=== PATIENT | female | born 1990 | race American Indian/Alaskan Native ===

== ENCOUNTER 2017-02-19 02:50 | Emergency (ER) | payer SELFPAY ==
[2017-02-19 03:03] VITALS: BP 128/85
== END 2017-02-19 07:02 | disposition left against medical advice (07) ==
LOC: ED 02:50
DX: K08.89 Other specified disorders of teeth and supporting structures (principal); Z53.21 Procedure and treatment not carried out due to patient leaving prior to being seen by health care provider

== ENCOUNTER 2017-08-03 23:04 | Emergency (ER) | payer SELFPAY ==
[2017-08-03 23:18] VITALS: BP 104/59
[2017-08-03 23:41] LABS: Basophils % (Auto) 0.8 % (0.0-1.8); Eosinophils % (Auto) 1.3 % (0.0-4.3); Hematocrit 39.1 % (30.3-42.9); Hemoglobin 13.2 gm/dl (10.1-14.3); Mean Corpuscular HGB Conc 34 % (30-34); Mean Corpuscular Hemoglobin 29 pg (28-32); Mean Corpuscular Volume 86 fl (79-97); Platelet Count 239 K/mm3 (140-440); Red Blood Count 4.54 M/mm3 (3.65-5.03); White Blood Count 8.4 K/mm3 (4.5-11.0)
[2017-08-03 23:58] LABS: Alanine Aminotransferase 11 units/L (7-56); Albumin 4.2 g/dL (3.9-5); Albumin/Globulin Ratio 1.7 %; Alkaline Phosphatase 39 units/L (35-129); Anion Gap 16 mmol/L; BUN/Creatinine Ratio 18; Blood Urea Nitrogen 11 mg/dL (7-17); Calcium 8.9 mg/dL (8.4-10.2); Carbon Dioxide 22 mmol/L (22-30); Chloride 100.3 mmol/L (98-107); Glucose 98 mg/dL (65-100); Lipase 12 units/L (13-60); Potassium 3.7 mmol/L (3.6-5.0); Sodium 135 mmol/L (137-145); Total Protein 6.7 g/dL (6.3-8.2)
[2017-08-04 00:07] LABS: Bilirubin,Urine NEG (Negative); Blood,Urine NEG (Negative); Ketones,Urine TR mg/dL (Negative); Leukocyte Esterase,Urine NEG (Negative); Mucus,Urine 1+ /HPF; Nitrite,Urine NEG (Negative); Protein,Urine <15 mg/dL mg/dL (Negative)
== END 2017-08-04 00:25 | disposition left against medical advice (07) ==
LOC: ED 23:04
DX: N93.9 Abnormal uterine and vaginal bleeding, unspecified (principal); Z53.21 Procedure and treatment not carried out due to patient leaving prior to being seen by health care provider
CPT/HCPCS: 36415; 80053; 81001; 83690; 84702; 84703; 85025

== ENCOUNTER 2017-09-15 21:26 | Emergency (ER) | payer MEDICAID ==
[2017-09-15 22:16] LABS: BUN/Creatinine Ratio 16; Blood Urea Nitrogen 8 mg/dL (7-17); Calcium 8.8 mg/dL (8.4-10.2); Hemolysis Index 9
[2017-09-15 22:24] LABS: Hematocrit 38.4 % (30.3-42.9); Hemoglobin 12.8 gm/dl (10.1-14.3); Mean Corpuscular HGB Conc 33 % (30-34); Mean Corpuscular Hemoglobin 30 pg (28-32); Mean Corpuscular Volume 89 fl (79-97); Platelet Count 259 K/mm3 (140-440); Red Blood Count 4.33 M/mm3 (3.65-5.03)
[2017-09-16] MEDS ORDERED: TYLENOL PO ONE ×2 (01:07→06:58)
--- NOTE | 2017-09-16 04:37 | Ultrasound Report ---
FINAL REPORT EXAM: US OB TRANSVAGINAL HISTORY: vaginal bleed with TECHNIQUE: Transvaginal imaging was obtained of the pelvis including Doppler interrogation of the adnexa and uterus. FINDINGS: The uterus is anteverted measuring 11.4 cm x 6.4 cm x 8.3 cm. Within the uterus is a gestational sac containing an embryo and yolk sac. The embryo measures 33.6 millimeters which corresponds to a 10 week 2 day IUP. The heart rate is 161 BPM. Adjacent to the gestational sac is a very small hypoechoic area measuring 7 millimeters x 5 millimeters by 10 millimeters compatible with a small subchorionic bleed. Free fluid is not seen. The right ovary measures 3.3 cm x 2 cm x 2.5 cm and contains several small follicles. The left ovary measures 4.5 cm x 3.4 cm x 3.1 cm. Within the left ovary is a complex septated cyst measuring 2.8 cm in diameter. IMPRESSION: Single viable IUP of 10 weeks 2 days, heart rate 161 BPM. Complex left ovarian cyst with septations measuring up to 2.8 cm in diameter. No evidence of free fluid
--- NOTE | 2017-09-16 04:39 | Ultrasound Report ---
FINAL REPORT EXAM: US OB < = 14 WEEKS FETUS HISTORY: vaginal bleed with TECHNIQUE: Transabdominal imaging was obtained of the pelvis along with Doppler interrogation of the uterus and adnexa. FINDINGS: The uterus is anteverted measuring 11.4 cm x 6.4 cm x 8.3 cm. Within the uterus is a gestational sac containing a yolk sac and embryo. The embryo measures 33.6 millimeters and crown-rump length, corresponding to a 10 week 2 day IUP. The heart rate is 161 BPM. Adjacent to the gestational sac is a very small hypoechoic area measuring 7 millimeters x 5 millimeters x 10 millimeters compatible with a subchorionic bleed. The right ovary is normal size contour blood flow and echotexture measuring 3.3 cm x 2 cm x 2.5 cm. There is several small follicles in the right ovary. The left ovary measures 3.5 cm x 3.4 cm x 3.1 cm. Within the left ovary is a complex septated cyst measuring 2.8 cm in diameter. Free fluid is not seen. IMPRESSION: Single viable IUP of 10 weeks 2 days. Complex septated left ovarian cyst measuring 2.8 cm in diameter.
[2017-09-16 06:15] VITALS: BP 116/72
[2017-09-16 06:30] LABS: Bilirubin,Urine NEG (Negative); Blood,Urine NEG (Negative); Color,Urine Yellow (Yellow); Mucus,Urine 1+ /HPF; Nitrite,Urine NEG (Negative); Protein,Urine <15 mg/dL mg/dL (Negative); Urobilinogen,Urine < 2.0 mg/dL (<2.0); WBC,Urine < 1.0 /HPF (0.0-6.0)
[2017-09-16] MEDS ORDERED: ZOFRAN ODT PO ONE (06:58)
--- NOTE | 2017-09-16 07:12 | Emergency Department Report ---
ED HPI - General Chief complaint: Vaginal Bleeding Stated complaint: VAGINAL BLEED/12WEEKS PREG Time Seen by Provider: 09/16/17 06:52 Source: patient Mode of arrival: Ambulatory Limitations: No Limitations - History of Present Illness MD Complaint: abdominal pain, vaginal bleeding (patient states that she has spotting for the last 2 days. Patient's abdominal pain is crampy and left-sided ) -: days(s) (2) Location: pelvis Radiation: none Severity: moderate Severity scale (0 -10): 5 Quality: cramping Consistency: intermittent Improves with: none Worsens with: none Associated symptoms: nausea/vomiting (patient does have some mild nausea but is not vomiting). denies: vaginal discharge, dysparuenia, shortness of breath, syncope, weakness - Related Data Previous Rx's Medication Instructions Recorded Last Taken Type Ondansetron [Zofran Odt] 4 mg PO Q8HR #10 tab.rapdis 09/16/17 Unknown Rx Allergies Allergy/AdvReac Type Severity Reaction Status Date / Time No Known Allergies Allergy Verified 02/14/14 22:07 ED Review of Systems ROS: Stated complaint: VAGINAL BLEED/12WEEKS PREG Other details as noted in HPI Comment: All other systems reviewed and negative ED Past Medical Hx - Past Medical History Previous Medical History?: No Additional medical history: Mirena. Anemia - Surgical History Additional Surgical History: - Social History Smoking Status: Never Smoker Substance Use Type: None - Medications Home Medications: Home Medications Medication Instructions Recorded Confirmed Last Taken Type Ondansetron [Zofran Odt] 4 mg PO Q8HR #10 tab.rapdis 09/16/17 Unknown Rx ED Physical Exam - General Limitations: No Limitations General appearance: alert, in no apparent distress - Head Head exam: Present: atraumatic, normocephalic - Eye Eye exam: Present: normal appearance - ENT ENT exam: Present: mucous membranes moist - Neck Neck exam: Present: normal inspection - Respiratory Respiratory exam: Present: normal lung sounds bilaterally. Absent: respiratory distress - Cardiovascular Cardiovascular Exam: Present: regular rate, normal rhythm. Absent: systolic murmur, diastolic murmur, rubs, gallop - GI/Abdominal GI/Abdominal exam: Present: soft, normal bowel sounds - Extremities Exam Extremities exam: Present: normal inspection - Back Exam Back exam: Present: normal inspection - Neurological Exam Neurological exam: Present: alert, oriented X3 - Psychiatric Psychiatric exam: Present: normal affect, normal mood - Skin Skin exam: Present: warm, dry, intact, normal color. Absent: rash ED Course Vital Signs 09/15/17 09/16/17 09/16/17 21:36 01:08 04:30 Temperature 97.8 F 98 F Pulse Rate 85 83 Respiratory 20 20 18 Rate Blood Pressure 101/50 Blood Pressure 105/77 [Left] O2 Sat by Pulse 100 100 98 Oximetry 09/16/17 05:50 Temperature 98.5 F Pulse Rate 76 Respiratory 18 Rate Blood Pressure Blood Pressure 116/72 [Left] O2 Sat by Pulse 100 Oximetry ED Medical Decision Making - Lab Data Result diagrams: 09/15/17 21:44 09/15/17 21:44 Lab Results 09/15/17 09/15/17 09/15/17 Range/Units 21:44 21:44 21:44 WBC 11.5 H (4.5-11.0) K/mm3 RBC 4.33 (3.65-5.03) M/mm3 Hgb 12.8 (10.1-14.3) gm/dl Hct 38.4 (30.3-42.9) % MCV 89 (79-97) fl MCH 30 (28-32) pg MCHC 33 (30-34) % RDW 14.0 (13.2-15.2) % Plt Count 259 (140-440) K/mm3 Sodium 136 L (137-145) mmol/L Potassium 3.7 (3.6-5.0) mmol/L Chloride 98.3 (98-107) mmol/L Carbon Dioxide 21 L (22-30) mmol/L Anion Gap 20 mmol/L BUN 8 (7-17) mg/dL Creatinine 0.5 L (0.7-1.2) mg/dL Estimated GFR > 60 ml/min BUN/Creatinine Ratio 16 % Glucose 91 (65-100) mg/dL Calcium 8.8 (8.4-10.2) mg/dL HCG, Quant 14573 H (0-4) mIU/mL Urine Color (Yellow) Urine Turbidity (Clear) Urine pH (5.0-7.0) Ur Specific [place] (1.003-1.030) Urine Protein (Negative) mg/dL Urine Glucose (UA) (Negative) mg/dL Urine Ketones (Negative) mg/dL Urine Blood (Negative) Urine Nitrite (Negative) Urine Bilirubin (Negative) Urine Urobilinogen (<2.0) mg/dL Ur Leukocyte Esterase (Negative) Urine WBC (Auto) (0.0-6.0) /HPF Urine RBC (Auto) (0.0-6.0) /HPF U Epithel Cells (Auto) (0-13.0) /HPF Urine Mucus /HPF Blood Type 09/15/17 09/15/17 Range/Units 21:44 Unknown WBC (4.5-11.0) K/mm3 RBC (3.65-5.03) M/mm3 Hgb (10.1-14.3) gm/dl Hct (30.3-42.9) % MCV (79-97) fl MCH (28-32) pg MCHC (30-34) % RDW (13.2-15.2) % Plt Count (140-440) K/mm3 Sodium (137-145) mmol/L Potassium (3.6-5.0) mmol/L Chloride (98-107) mmol/L Carbon Dioxide (22-30) mmol/L Anion Gap mmol/L BUN (7-17) mg/dL Creatinine (0.7-1.2) mg/dL Estimated GFR ml/min BUN/Creatinine Ratio % Glucose (65-100) mg/dL Calcium (8.4-10.2) mg/dL HCG, Quant (0-4) mIU/mL Urine Color Yellow (Yellow) Urine Turbidity Clear (Clear) Urine pH 6.0 (5.0-7.0) Ur Specific [place] 1.025 (1.003-1.030) Urine Protein <15 mg/dl (Negative) mg/dL Urine Glucose (UA) Neg (Negative) mg/dL Urine Ketones Tr (Negative) mg/dL Urine Blood Neg (Negative) Urine Nitrite Neg (Negative) Urine Bilirubin Neg (Negative) Urine Urobilinogen < 2.0 (<2.0) mg/dL Ur Leukocyte Esterase Neg (Negative) Urine WBC (Auto) < 1.0 (0.0-6.0) /HPF Urine RBC (Auto) 2.0 (0.0-6.0) /HPF U Epithel Cells (Auto) 5.0 (0-13.0) /HPF Urine Mucus 1+ /HPF Blood Type O POSITIVE - Radiology Data Radiology results: report reviewed Ultrasound OB transvaginal showed a 10 week 2 day IUP viable there is a left- sided ovarian cysts Critical care attestation.: If time is entered above; I have spent that time in minutes in the direct care of this critically ill patient, excluding procedure time. ED Disposition Clinical Impression: Threatened miscarriage in early , Ovarian cyst Disposition: TO HOME OR SELFCARE Is pt being admited?: No Does the pt Need Aspirin: No Condition: Fair Instructions: Threatened Miscarriage (ED) Prescriptions: Ondansetron [Zofran Odt] 4 mg PO Q8HR #10 tab.rapdis Referrals: PRIMARY CARE, [Primary Care Provider] - 3-5 Days
== END 2017-09-16 07:12 | disposition home or self-care (01) ==
LOC: ED 21:26
DX: O20.0 Threatened abortion (principal); O34.81 Maternal care for other abnormalities of pelvic organs, first trimester; Z3A.10 10 weeks gestation of pregnancy
CPT/HCPCS: 36415; 76801; 76817; 80048; 81001; 84702; 85027; 86900; 86901

== ENCOUNTER 2017-09-27 09:56 | Emergency (ER) | payer MEDICAID ==
[2017-09-27 10:06] VITALS: BP 104/66
[2017-09-27] MEDS ORDERED: ASPIRIN PO ONE (10:06)
[2017-09-27 10:29] LABS: Basophils % (Auto) 0.3 % (0.0-1.8); Eosinophils # (Auto) 0.1 K/mm3 (0.0-0.4); Eosinophils % (Auto) 1.1 % (0.0-4.3); Hematocrit 40.4 % (30.3-42.9); Hemoglobin 13.4 gm/dl (10.1-14.3); Lymphocytes # (Auto) 1.7 K/mm3 (1.2-5.4); Lymphocytes % (Auto) 15.2 % (13.4-35.0); Mean Corpuscular HGB Conc 33 % (30-34); Mean Corpuscular Hemoglobin 30 pg (28-32); Mean Corpuscular Volume 89 fl (79-97); Monocytes # (Auto) 0.4 K/mm3 (0.0-0.8); Monocytes % (Auto) 3.8 % (0.0-7.3); Platelet Count 258 K/mm3 (140-440); Red Blood Count 4.52 M/mm3 (3.65-5.03); Red Cell Distribution Width 14.1 % (13.2-15.2)
[2017-09-27 10:47] LABS: BUN/Creatinine Ratio 20; Blood Urea Nitrogen 8 mg/dL (7-17); Calcium 8.6 mg/dL (8.4-10.2); Hemolysis Index 21
== END 2017-09-27 10:30 | disposition left against medical advice (07) ==
LOC: ED 09:56
DX: R07.9 Chest pain, unspecified (principal); Z53.21 Procedure and treatment not carried out due to patient leaving prior to being seen by health care provider
CPT/HCPCS: 36415; 80048; 84484; 85025; 93005; 93010

== ENCOUNTER 2017-12-11 13:02 | Outpatient (CLI) | payer MEDICAID ==
[2017-12-11 14:09] LABS: Bilirubin,Urine NEG (Negative); Blood,Urine NEG (Negative); Color,Urine Straw (Yellow); Protein,Urine <15 mg/dL mg/dL (Negative); Urobilinogen,Urine < 2.0 mg/dL (<2.0); WBC,Urine < 1.0 /HPF (0.0-6.0)
== END 2017-12-11 15:12 | disposition home or self-care (01) ==
LOC: TRG 13:02
PROVIDERS: ATTEND Obstetrics & Gynecology Gynecology
DX: O21.2 Late vomiting of pregnancy (principal); O26.892 Other specified pregnancy related conditions, second trimester; R42 Dizziness and giddiness; R10.30 Lower abdominal pain, unspecified; Z3A.22 22 weeks gestation of pregnancy
CPT/HCPCS: 59025; 81001

== ENCOUNTER 2018-02-10 00:18 | Outpatient (CLI) | payer MEDICAID ==
[2018-02-10 00:32] VITALS: BP 111/55
[2018-02-10 01:20] LABS: Bilirubin,Urine NEG (Negative); Blood,Urine NEG (Negative); Color,Urine Yellow (Yellow); Mucus,Urine FEW /HPF; Protein,Urine <15 mg/dL mg/dL (Negative); Urobilinogen,Urine < 2.0 mg/dL (<2.0)
[2018-02-10 01:26] LABS: Amphetamine Screen,Urine PRESUMPTIVE NEGATIVE; Benzodiazepines Screen,Urine PRESUMPTIVE NEGATIVE; Cocaine Screen,Urine PRESUMPTIVE NEGATIVE; Methadone Screen,Urine PRESUMPTIVE NEGATIVE; Opiate Screen,Urine PRESUMPTIVE NEGATIVE
[2018-02-10 01:43] LABS: Cannabinoid Screen,Urine PRESUMPTIVE POSITIVE
[2018-02-10] MEDS ORDERED: TYLENOL ONE (01:51)
[2018-02-10] MEDS ORDERED: TYLENOL PO ONE (01:55)
== END 2018-02-10 02:01 | disposition home or self-care (01) ==
LOC: TRG 00:18
PROVIDERS: ATTEND Obstetrics & Gynecology Gynecology
DX: O47.03 False labor before 37 completed weeks of gestation, third trimester (principal); Z3A.31 31 weeks gestation of pregnancy
CPT/HCPCS: 59025; 80307; 81001

== ENCOUNTER 2018-03-10 23:17 | Emergency (ER) | payer MEDICAID | END 2018-03-10 23:30 | disposition left against medical advice (07) | LOC: ED 23:17 | DX: L72.8 Other follicular cysts of the skin and subcutaneous tissue (principal); Z53.21 Procedure and treatment not carried out due to patient leaving prior to being seen by health care provider ==

== ENCOUNTER 2019-07-27 14:12 | Emergency (ER) | payer MEDICAID ==
--- NOTE | 2019-07-27 15:03 | Event Note ---
ED Screening Note Date of service: 07/27/19 Time: 14:59 ED Screening Note: Pt complains of shortness of breath, chest pain ,and back pain x yesterday +cough, chills/sweats 14 weeks denies recent long travel, hx of DVT/PE denies vaginal bleeding or abdominal pain or dysuria +calf tenderness abnormal breath sounds on exam This initial assessment/diagnostic orders/clinical plan/treatment(s) is/are subject to change based on patients health status, clinical progression and re-assessment by fellow clinical providers in the ED. Further treatment and workup at subsequent clinical providers discretion. Patient/guardian urged not to elope from the ED as their condition may be serious if not clinically assessed and managed. Initial orders include: Labs CXR
--- NOTE | 2019-07-27 16:04 | XRay Report ---
CHEST 2 VIEWS INDICATION: chest pain, SOB, abnormal breath sounds. COMPARISON: FINDINGS: Support devices: None. Heart: Within normal limits. Lungs/pleura: No acute air space or interstitial disease. No pneumothorax. Additional findings: Thoracolumbar scoliosis is noted. IMPRESSION: No acute findings. Signer Name: Miguel Cruz Jr, MD Signed: 07/27/2019 3:59 PM Workstation Name: [id number]
--- NOTE | 2019-07-27 16:31 | Vascular Lab Report ---
. DUPLEX DOPPLER LOWER EXTREMITY VEINS, BILATERAL INDICATION: Bilateral lower extremity pain and shortness of breath since yesterday. TECHNIQUE: Duplex doppler imaging was performed through the veins of both lower extremities using ve nous compression and other maneuvers. COMPARISON: No relevant prior imaging study available. FINDINGS: Right Common femoral vein: Negative. Right Superficial femoral vein: Negative. Right Popliteal vein: Negative. Right Calf veins: Negative. Left Common femoral vein: Negative. Left Superficial femoral vein: Negative. Left Popliteal vein: Negative. Left Calf veins: Negative. Additional findings: None.. IMPRESSION: No sonographic evidence for DVT in either lower extremity. Signer Name: Miguel Cruz Jr, MD Signed: 07/27/2019 4:27 PM Workstation Name: [id number]
[2019-07-27 17:32] LABS: Bilirubin,Urine NEG (Negative); Blood,Urine NEG (Negative); Color,Urine Yellow (Yellow); Mucus,Urine 2+ /HPF
[2019-07-27] MEDS ORDERED: ALBUTEROL 2.5 MG/3 ML NEBU IH ONE (17:37)
[2019-07-27] MEDS ORDERED: IPRATROPIUM 0.02% NEBU 2.5 ML IH ONE (17:37)
[2019-07-27] MEDS ORDERED: FAMOTIDINE 20 MG/2 ML INJ IV ONE (17:37)
[2019-07-27] MEDS ORDERED: SODIUM CHLORIDE 0.9% 1000 ML 1,000 ML IV ONE (17:37)
[2019-07-27] MEDS ORDERED: methylPREDNISolone Sod Succinate 125 MG/2 ML INJ IV ONE (17:37)
[2019-07-27] MEDS ORDERED: ACETAMINOPHEN 500 MG TAB PO ONE (17:37)
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
[2019-07-27 17:39] LABS: Alanine Aminotransferase 8 units/L (7-56); BUN/Creatinine Ratio 13; Blood Urea Nitrogen 5 mg/dL (7-17); Hemolysis Index 4
[2019-07-27] MEDS ORDERED: ONDANSETRON 4 MG/2 ML INJ IV ONE (17:43)
[2019-07-27] MEDS ORDERED: D5W/0.45% NACL 1,000 ML IV SCH (18:00)
[2019-07-27 18:35] LABS: Hematocrit 43.7 % (30.3-42.9); Hemoglobin 14.5 gm/dl (10.1-14.3); Mean Corpuscular HGB Conc 33 % (30-34); Mean Corpuscular Volume 90 fl (79-97); Platelet Count 232 K/mm3 (140-440); Red Blood Count 4.88 M/mm3 (3.65-5.03)
[2019-07-27 18:45] LABS: INR 1.08 (0.87-1.13)
[2019-07-27 18:46] LABS: Partial Thromboplastin Time 26.8 Sec. (24.2-36.6)
--- NOTE | 2019-07-27 22:12 | Ultrasound Report ---
ULTRASOUND OBSTETRIC INDICATION / CLINICAL INFORMATION: back pain . Clinical Gestational Age (GA): 13 weeks 2 days TECHNIQUE: Transabdominal. COMPARISON: None available. FINDINGS: GESTATIONAL SAC: Well-defined oval shape and intrauterine in location. PLACENTA: Left lateral. EMBRYO/FETUS: No significant abnormality. - [place]-Rump Length = 7.3 cm = 13 weeks, 3 day(s). - Heart Rate, beats per minute (if present) = 161 ADNEXA: No significant abnormality. FREE FLUID: None. ADDITIONAL FINDINGS: None. IMPRESSION: 1. Single, living intrauterine with estimated sonographic age of 13 weeks, 3 day(s). Signer Name: Shirley Jones MD Signed: 07/27/2019 10:07 PM Workstation Name: [id number]
[2019-07-27 22:44] VITALS: BP 119/68
== END 2019-07-27 22:45 | disposition home or self-care (01) ==
LOC: ED 14:12
DX: O99.512 Diseases of the respiratory system complicating pregnancy, second trimester (principal); Z3A.14 14 weeks gestation of pregnancy
CPT/HCPCS: 36415; 71046; 76801; 80053; 81001; 82550; 83735; 84484; 85027; 85379; 85610; 85730; 86850; 86900; 86901; 93005; 93010; 93970; 94640; 96361; 96374; 96375; 99285; J2405; J2930; J7030; 94644

== ENCOUNTER 2019-09-18 09:57 | Outpatient (CLI) | payer MEDICAID ==
[2019-09-18] MEDS ORDERED: LACTATED RINGERS 1,000 ML ONE ×2 (10:13→11:52)
[2019-09-18] MEDS ORDERED: TERBUTALINE 1 MG/1 ML INJ ONE (10:14)
[2019-09-18 12:27] LABS: Bacteria,Urine 1+ /HPF (Negative); Bilirubin,Urine NEG (Negative); Blood,Urine NEG (Negative); Color,Urine Yellow (Yellow); Mucus,Urine FEW /HPF; Protein,Urine <15 mg/dL mg/dL (Negative); Urobilinogen,Urine < 2.0 mg/dL (<2.0); WBC,Urine < 1.0 /HPF (0.0-6.0)
--- NOTE | 2019-09-18 13:49 | Ultrasound Report ---
Obstetrical ultrasound and biophysical profile. HISTORY: Possible premature rupture of membranes. FINDINGS: Biophysical profile is 6-8. 2 points were received for movement, posture/tone and qualit ative amniotic fluid volume. It is too early to evaluate breathing movements. Limited obstetrical ultrasound demonstrates a viable intrauterine in the cephalic position dated 21 weeks 3 days. Estimated weight is 434 g. heart tones are 153 bpm. The placenta is anteriorly located. Cervical length is 4.1 cm. survey demonstrates no gross anomaly. IMPRESSION: 1. Early viable intrauterine dated 21 weeks 3 days. 2. Biophysical profile 02/20. Signer Name: Roberto Salcido MD Signed: 09/18/2019 1:45 PM Workstation Name: [id number]
[2019-09-18 17:01] VITALS: BP 107/72
== END 2019-09-18 14:32 | disposition home or self-care (01) ==
LOC: TRG 09:57
PROVIDERS: ATTEND Obstetrics & Gynecology
DX: O42.912 Preterm premature rupture of membranes, unspecified as to length of time between rupture and onset of labor, second trimester (principal); O47.02 False labor before 37 completed weeks of gestation, second trimester; Z3A.20 20 weeks gestation of pregnancy
CPT/HCPCS: 59025; 76805; 76819; 81001; 96360; 96361; J7120; 76810; J3105

== ENCOUNTER 2019-10-19 19:56 | Emergency (ER) | payer MEDICAID ==
[2019-10-19] MEDS ORDERED: ACETAMINOPHEN 325 MG TAB ONE (21:01)
[2019-10-19] MEDS ORDERED: ACETAMINOPHEN 325 MG TAB PO ONE (21:01)
[2019-10-19 21:22] LABS: Basophils # (Auto) 0.1 K/mm3 (0.0-0.1); Basophils % (Auto) 0.6 % (0.0-1.8); Eosinophils # (Auto) 0.1 K/mm3 (0.0-0.4); Eosinophils % (Auto) 1.1 % (0.0-4.3); Hematocrit 38.3 % (30.3-42.9); Hemoglobin 12.6 gm/dl (10.1-14.3); Lymphocytes # (Auto) 2.3 K/mm3 (1.2-5.4); Lymphocytes % (Auto) 18.3 % (13.4-35.0); Mean Corpuscular HGB Conc 33 % (30-34); Mean Corpuscular Volume 90 fl (79-97); Monocytes # (Auto) 0.6 K/mm3 (0.0-0.8); Monocytes % (Auto) 4.8 % (0.0-7.3); Platelet Count 284 K/mm3 (140-440); Red Blood Count 4.25 M/mm3 (3.65-5.03); Red Cell Distribution Width 13.6 % (13.2-15.2)
[2019-10-19 21:45] LABS: Alanine Aminotransferase 8 units/L (7-56); Albumin 3.7 g/dL (3.9-5); BUN/Creatinine Ratio 18; Blood Urea Nitrogen 9 mg/dL (7-17); Calcium 9.3 mg/dL (8.4-10.2); Hemolysis Index 6
[2019-10-20 00:12] LABS: Bilirubin,Urine NEG (Negative); Blood,Urine NEG (Negative); Color,Urine Yellow (Yellow); Mucus,Urine FEW /HPF; Protein,Urine <15 mg/dL mg/dL (Negative); Urobilinogen,Urine < 2.0 mg/dL (<2.0)
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
[2019-10-20 01:09] VITALS: BP 128/76
== END 2019-10-20 01:07 | disposition home or self-care (01) ==
LOC: ED 19:56
DX: O26.892 Other specified pregnancy related conditions, second trimester (principal); M62.830 Muscle spasm of back; Z86.2 Personal history of diseases of the blood and blood-forming organs and certain disorders involving the immune mechanism; Z98.890 Other specified postprocedural states; Z79.899 Other long term (current) drug therapy; Z3A.25 25 weeks gestation of pregnancy
CPT/HCPCS: 36415; 80053; 81001; 85025

== ENCOUNTER 2020-05-08 22:55 | Emergency (ER) | payer MEDICAID ==
[2020-05-09] MEDS ORDERED: HYDROcodone/ACETAMINOPHEN 5-325 MG TAB PO STA (03:17)
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
[2020-05-09] MEDS ORDERED: HYDROcodone/ACETAMINOPHEN 5-325 MG TAB PO ONE (05:14)
[2020-05-09] MEDS ORDERED: IBUPROFEN 600 MG TAB PO ONE (05:14)
== END 2020-05-09 05:22 | disposition home or self-care (01) ==
LOC: ED 22:55
DX: S09.90XA Unspecified injury of head, initial encounter (principal); F17.200 Nicotine dependence, unspecified, uncomplicated; Z98.890 Other specified postprocedural states; Z79.899 Other long term (current) drug therapy; V49.49XA Driver injured in collision with other motor vehicles in traffic accident, initial encounter; Y93.89 Activity, other specified; Y92.488 Other paved roadways as the place of occurrence of the external cause; Y99.8 Other external cause status
CPT/HCPCS: 70450; 99283